=== PATIENT | male | born 1960 | race Hispanic/Latino ===

== ENCOUNTER 2025-03-04 06:39 | Day surgery (SDC) | payer MEDICARE ==
[2025-02-27 10:40] LABS: BASOPHILS # (AUTO) 0.1 (0.0-0.1); EOSINOPHILS # (AUTO) 0.5 (0.0-0.4); EOSINOPHILS % 14.9 % (0.0-6.0); HEMATOCRIT 37.2 % (38.2-49.6); HEMOGLOBIN 11.9 g/dL (14.0-18.0); LYMPHOCYTES # (AUTO) 0.7 (1.0-3.2); LYMPHOCYTES % 18.9 % (18.0-39.1); MEAN CORPUSCULAR HEMOGLOBIN 28.5 pg (28-32); MONOCYTES # (AUTO) 0.4 (0.2-0.8); NEUTROPHILS # (AUTO) 1.9 (2.1-6.9); NEUTROPHILS % 53.2 % (38.7-80.0); PLATELET COUNT 183 x10e3/uL (140-360); RED BLOOD COUNT 4.18 x10e6/uL (4.3-5.7); RED CELL DISTRIBUTION WIDTH 14.5 % (11.7-14.4); WHITE BLOOD COUNT 3.55 x10e3/uL (4.8-10.8)
[2025-02-27 10:45] LABS: ALBUMIN 3.5 g/dL (3.5-5.0); ALBUMIN/GLOBULIN RATIO 0.9 (0.8-2.0); ANION GAP 13.4 mmol/L (8-16); CALCIUM 8.9 mg/dL (8.4-10.2); CHOL/HDL RATIO 2.6 (3.9-4.7); CREATININE, SERUM 0.94 mg/dL (0.72-1.25); TOTAL PROTEIN 7.6 g/dL (6.5-8.1)
[2025-02-27 10:49] LABS: POTASSIUM 3.4 mmol/L (3.5-5.1)
[2025-03-04] VITALS (11 sets, daily range): BP systolic 102–125; BP diastolic 60–70; PULSE 55–83; RESP 11–20; TEMP 96.4; O2SAT 98–100
[~2025-03-04 06:39] MED LIST: ELIQUIS2.5 MG PO; FEROSUL325 MG PO; FLOMAX0.4 MG PO; FLUOXETINE HCL10 MG PO; FUROSEMIDE20 MG PO; JARDIANCE10 MG PO; LACTULOSE10 GM/15 M; LEVOTHYROXINE150 MCG PO; METOPROLOL SUCC25 MG PO; NEURONTIN300 MG PO; ONDANSETRON ODT4 MG SL; PANTOPRAZOLE SO40 MG PO; POTASSIUM CHLO10 ME1 PO; TADALAFIL20 M1 PO; TIZANIDINE HCL4 MG PO; UPTRAVI 1600 MCG PO
[2025-03-04] MEDS ORDERED: VERAPAMIL HCL 2.5 MG/ML 2 ML VIAL ONE (07:50)
[2025-03-04] MEDS ORDERED: LIDOCAINE HCL 2% LOCAL 20 ML VIAL ONE (07:50)
[2025-03-04] MEDS ORDERED: HEPARIN SOD/SOD CHLORIDE 2,000 ML ONE (07:51)
[2025-03-04] MEDS ORDERED: IOPAMIDOL 370 MG/ML 100 ML INFUS..BTL INJ ONE (07:51)
[2025-03-04] MEDS ORDERED: SODIUM CHLORIDE 0.9% 1000ML 1,000 ML ONE (07:51)
[2025-03-04] MEDS ORDERED: MIDAZOLAM HCL 2 MG/2 ML VIAL ONE (08:08)
[2025-03-04] MEDS ORDERED: HEPARIN SOD/SOD CHLORIDE 1,000 ML ONE (08:08)
[2025-03-04] MEDS ORDERED: FENTANYL CITRATE/PF 100MCG/2 ML INJ ONE (08:08)
== END 2025-03-04 10:50 | disposition home or self-care (01) ==
LOC: CATH LAB 06:39
PROVIDERS: ATTEND Internal Medicine Interventional Cardiology
DX: I25.118 Atherosclerotic heart disease of native coronary artery with other forms of angina pectoris (principal); I11.0 Hypertensive heart disease with heart failure; I50.22 Chronic systolic (congestive) heart failure; E78.01 Familial hypercholesterolemia; E03.9 Hypothyroidism, unspecified; E66.9 Obesity, unspecified; Z68.38 Body mass index [BMI] 38.0-38.9, adult; Z95.818 Presence of other cardiac implants and grafts; I48.19 Other persistent atrial fibrillation; Z79.01 Long term (current) use of anticoagulants; Z11.52 Encounter for screening for COVID-19; Z79.899 Other long term (current) drug therapy
CPT/HCPCS: 36415; 76937; 80053; 80061; 83880; 85025; 93454; C1887; J2003; J2250; J3010; J7030; Q9967; U0002; 93458; 99152